=== PATIENT | female | born 2000 | race Two or more races ===

== ENCOUNTER 2024-10-16 15:41 | Emergency (ER) | payer MEDICAID, SELFPAY ==
[2024-10-16 15:57] VITALS: BP 146/91; PULSE 104; RESP 18; TEMP 36.8; O2SAT 97; BMI 33.9
--- NOTE | 2024-10-16 17:04 | EDRME_ITS ---
Rapid Medical Screening Exam [facility] Arrival date/time: 10/16/24 15:41 23-year-old female with no known medical history presents to the emergency room with a chief complaint of tenderness pain and difficulty swallowing to the left side of her neck. Patient states she has been seen by her primary care provider and prescribed to treatment of oral antibiotics for strep throat and she is still symptomatic. I have greeted and performed a focused initial assessment of this patient. A comprehensive ED assessment and evaluation of the patient, analysis of all test results, and completion of the medical decision making process will be conducted by additional ED providers. Chief Complaint: Dental/Oral/Throat Time Seen by Provider: 10/16/24 15:58 Vital signs: Vital Signs Temperature 98.3 F 10/16/24 15:57 Pulse Rate 104 H 10/16/24 15:57 Respiratory Rate 18 10/16/24 15:57 Blood Pressure 146/91 H 10/16/24 15:57 Pulse Oximetry (%) 97 10/16/24 15:57 Oxygen Delivery Method Room Air 10/16/24 15:57 Vital signs reviewed by provider: Yes
[2024-10-16 17:07] LABS: HCG Qualitative,Urine Negative
[2024-10-16 17:35] LABS: Strep A Rapid Negative (Negative)
--- NOTE | 2024-10-16 19:23 | XR_ITS ---
Examination: CT soft tissue neck, without intravenous contrast. 2-D coronal reconstructions. 2-D sagittal reconstructions. Date and time of exam :October 16, 2024, 1950 hrs. Indications: Difficulty swallowing 2 weeks. CTDI: vol (mGy):15.1 DLP: (mGycm):447 Technique: 1.25 mm axial sections of the neck of the obtained. Coronal and sagittal reconstructions have been obtained. Low dose protocols were performed. One or more of the following dose reduction techniques were used; automated exposure control, adjustment of the mA and/or KV according to patient size, use of iterative reconstruction technique. Findings: No pathologic cervical lymphadenopathy. Supraglottic region normal The larynx appears normal Millimeter left thyroid nodule No encroachment upon the upper trachea Esophagus does not appear fluid distended The optic globes exhibit symmetry Impression: No soft tissue neck mass No pathologic cervical lymphadenopathy Normal larynx and normal epiglottis Given the patient's presentation, consider elective standard fluoroscopically guided esophagram follow-up
--- NOTE | 2024-10-16 19:25 | PC.NURSE ---
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 Patient able to swallow fluids and food. CT aware of order change.
--- NOTE | 2024-10-16 21:48 | PD.EDDENTL ---
ED Dental RME/HPI General Chief complaint: Dental/Oral/Throat Stated complaint: FELLS SOMETHING IN THROAT WHEN SHE SWALLOWS Time Seen by Provider: 10/16/24 15:58 Arrival date/time: 10/16/24 15:41 RME / HPI RME / HPI Narrative: 23-year-old female with no known medical history presents to the emergency room with a chief complaint of tenderness pain and difficulty swallowing to the left side of her neck. Patient states she has been seen by her primary care provider and prescribed to treatment of oral antibiotics for strep throat and she is still symptomatic. This been ongoing for the last 2 weeks. Patient denies any cough denies any other complaints. Patient is able to drink and eat without any difficulty. Related Data Home Medications ?Medication ?Instructions ?Recorded ?Confirmed vit no.95-ferrous 1 tab PO QDAY 04/04/19 04/04/19 fumarate 28 mg-folic acid 800 mcg tablet () Previous Rx's ?Medication ?Instructions ?Recorded ibuprofen 800 mg tablet 800 mg PO Q8H PRN pain #30 tabs 09/10/19 Allergies Allergy/AdvReac Type Severity Reaction Status Date / Time No Known Allergies Allergy Verified 10/16/24 15:46 Review of Systems Review of Systems Narrative Review of Systems: Review of system reviewed and within normal limits except mentioned in HPI ED Exam Narrative Physical exam: VITAL SIGNS: Reviewed. GENERAL APPEARANCE: Alert and interactive, follows commands, no acute distress, HEAD AND FACE: Non-traumatic. ENT: PERRL, pink conjunctivitis, eyelid no trauma, Mucous membrane moist. NECK: Supple, nontender, no nuchal rigidity. CHEST: No tenderness, no crepitus, no paradoxical movement, no retractions. LUNGS: Clear, well ventilated, symmetric, no rales, no wheezing, no ronchi, no stridor, good breath sounds bilaterally. HEART: Regular rate, regular rhythm, no murmur, no gallops. ABDOMEN: Soft, positive bowel sounds, nondistended, no guarding, nontender, no rebound, no masses, RECTAL: Deferred. GENITAL: Deferred. NEUROLOGICAL: Gross motor function intact sensory function intact, Appropriate for age. MUSCULOSKELETAL: low back nontender, full range of motion. EXTREMITIES: Nontender, full range of motion. SKIN: Color pink, dry, no rash, no lacerations, no abrasions, no contusions. LYMPHATICS: Deferred. Course Quality Measures none Orders Category Date Time Status CT Screening NOW Care 10/16/24 16:[address] soft tissue neck wo con Stat Exams 10/16/24 19:23 Completed HCG Qualitative,Urine Stat Lab 10/16/24 16:34 Completed Strep A Rapid Stat Lab 10/16/24 16:10 Completed Vital Signs Vital signs: Vital Signs Temperature 98.3 F 10/16/24 15:57 Pulse Rate 104 H 10/16/24 15:57 Respiratory Rate 18 10/16/24 15:57 Blood Pressure 146/91 H 10/16/24 15:57 Pulse Oximetry (%) 97 10/16/24 15:57 Oxygen Delivery Method Room Air 10/16/24 15:57 Dental / Oral MDM Narrative MDM Narrative:: 23-year-old female with no known medical history presents to the emergency room with a chief complaint of tenderness pain and difficulty swallowing to the left side of her neck. Patient states she has been seen by her primary care provider and prescribed to treatment of oral antibiotics for strep throat and she is still symptomatic. This been ongoing for the last 2 weeks. Patient denies any cough denies any other complaints. Patient is able to drink and eat without any difficulty. Patient CT scan of the neck soft tissue, came back with no acute pathology. Patient was advised to follow-up closely with ENT to do further evaluation. Patient stable discharged home able to drink and eat without any difficulty. Patient data External records reviewed:: None Clinical information provided by:: patient Social determinants that could affect healthcare access:: none Patient has the following chronic illnesses:: None How is presenting disease/condition affected by chronic disease/condition?: no chronic disease Evaluation data The following diagnostics were reviewed and interpreted by me:: lab results and radiology exam(s) Lab and/or radiology exams considered but not ordered:: None Interpretation Summary: Tested negative for strep Medications / Prescriptions Medications or Prescriptions considered but not ordered:: None Medication administrations:: None Consultations Consultation(s) initiated? (list below): No Diagnosis Dental Differential Diagnosis: dental caries and other (Foreign body sensation, throat,) Most likely diagnosis given after review of the tests above:: Foreign body sensation throat Admission Indicated Admission indicated?: not indicated Admission Request Was there a request for admission?: No Disposition Plan Disposition Plan: Discharge Discharge Attestation Discharge Attestation: The patient was given an opportunity to ask questions and understood the discharge instructions. Discharge instructions specifically effects, indications for sooner follow up or return to the emergency department, and the expected course of current diagnosis. Patient condition: Stable Discharge Plan Plan Patient Disposition: HOME (Self Care) Discharge Disposition comment: Stable Prescriptions/Referrals Prescriptions/Med Rec: No Action PNV no.95-ferrous fumarate-FA [] 28 mg iron- 800 mcg Tablet 1 tab PO QDAY ibuprofen 800 mg tablet 800 mg PO Q8H PRN (Reason: pain) Qty: 30 0RF Referrals: No Primary/Family,Physician [Primary Care Provider] - In 1 week Problem List Clinical Impression: Foreign body sensation in throat Patient/Caregiver Discharge Instructions Discharge Activity: activity as tolerated Education Materials: ED Swallowed Foreign Body (Adult) Additional Instructions: Thank you for the opportunity for serving you today. You are stable for discharged . You are advised to: Follow-up with your PCP in 1 to 2 days and asked for referral to ENT Return to ED for worsening of symptoms Increase oral fluids Continue taking your antibiotic and prednisone prescribed by your PCP Print Language: Faroese Stand Alone Forms: Daphne Award Info., Patient Portal Info Letter PA/DIRECT MARKETING MANAGER Supervising Physician ANDREWS/KERRIE Supervising Physician: MD Gregg
== END 2024-10-16 22:07 | disposition home or self-care (01) ==
PROVIDERS: Nurse Practitioner Family; Emergency Provider Emergency Medicine
DX: R09.A2 Foreign body sensation, throat (principal)
CPT/HCPCS: 70490; 81025; 87651; 99283